=== PATIENT | male | born 2000 | race African-American/Black ===

== ENCOUNTER 2020-04-04 22:29 | Emergency (ER) | payer OTHER ==
--- NOTE | 2020-04-04 23:01 | EDM.PDOCBH ---
ED HPI GENERAL MEDICAL PROBLEM - General Chief Complaint: Behavioral/Psych Stated Complaint: ATTEMPTED SUICIDE Time Seen by Provider: 04/04/20 22:40 Source of Information: Reports: Patient, Police (3 members of the [employer]) History Limitations: Reports: No Limitations - History of Present Illness INITIAL COMMENTS - FREE TEXT/NARRATIVE: Mr. Oliva is a very pleasant 19-year-old man who is now brought to the ED by the [employer] [facility] after they witnessed him attempting to cut his left wrist. According to the police, the patient was feeling particularly depressed tonight and posted suicidal thoughts on Facebook while he was driving around the [facility] campus. The police were notified and were able to locate the patient. When he committed a traffic violation, they pulled him over, and as they approached his vehicle, they saw him actively cutting his left wrist with a knife. They pulled him out of his vehicle, put him in handcuffs for his own protection, and brought him here. The patient states that he does not have a formal diagnosis of depression or any other psychiatric illnesses, although he knows that he has been depressed for a long time. He states that he felt particularly depressed tonight, which is why he did what he did earlier, as an attempt to commit suicide. Other than his left wrist laceration, he is uninjured. The patient states that last tetanus vaccination was last year. Here in the ED, the patient is found to be hemodynamically stable, afebrile, saturating 100% on room air. Other than his depression and suicidal ideation, the patient denies having a recent fever, chills, sore throat, ear pain, nasal or sinus congestion, cough, dyspnea, chest pain, palpitations, nausea, vomiting, constipation, diarrhea, abdominal pain, urinary symptoms, recent weight gain or weight loss, recent bloody bowel movements or black bowel movements, recent joint aches, headaches, or rashes. The patient is from [place], [place]. We are notified that the patient's father is on his way here from [place]. The patient did not receive an influenza vaccine this season, but agreed to receive one here [facility]. - Related Data Allergies Allergy/AdvReac Type Severity Reaction Status Date / Time No Known Allergies Allergy Verified 04/04/20 22:36 Home Meds: Home Meds . [No Known Home Meds] 04/04/20 [History] Past Medical History HEENT History: Reports: Hard of Hearing (right ear) - Past Surgical History HEENT Surgical History: Reports: Myringotomy w Tube(s) (bilateral), Oral Surgery (dental extractions), Other (See Below) (Right middle ear prosthetics) Social & Family History - Family History Cardiac: Reports: CT Endocrine/Metabolic: Reports: Diabetes, type II - Tobacco Use Tobacco Use Status *Q: Never Tobacco User - Caffeine Use Caffeine Use: Reports: Tea - Alcohol Use Alcohol Use History: Yes Alcohol Use Frequency: Socially - Recreational Drug Use Recreational Drug Use: Yes Drug Use in Last 12 Months: Yes Recreational Drug Type: Reports: Marijuana/Hashish (last smoked 2018) - Living Situation & Occupation Living situation: Reports: Single, Other (Dorm) Occupation: Student ([employer]) ED ROS GENERAL - Review of Systems Review Of Systems: Comprehensive ROS is negative, except as noted in HPI. ED EXAM, BEHAVIORAL HEALTH - Physical Exam Exam: See Below Exam Limited By: No Limitations General Appearance: Alert, WD/WN, No Apparent Distress Eye Exam: Bilateral Eye: EOMI, Normal Inspection Ears: Normal External Exam, Hearing Loss (right ear) Nose: Normal Inspection Throat/Mouth: Normal Inspection, Normal Lips, Normal Voice, No Airway Compromise Head: Atraumatic, Normocephalic Neck: Normal Inspection, Full Range of Motion Respiratory/Chest: No Respiratory Distress, Lungs Clear, Normal Breath Sounds, No Accessory Muscle Use Cardiovascular: Normal Peripheral Pulses, Regular Rate, Rhythm, No Edema, No Gallop, No JVD, No Murmur, No Rub GI/Abdominal: Normal Bowel Sounds, Soft, Non-Tender, No Organomegaly, No Distention, No Abnormal Bruit, No Mass Back Exam: Normal Inspection, Full Range of Motion, NT Extremities: Normal Range of Motion, No Pedal Edema, Normal Capillary Refill, Other (Proximately 3 cm partial-thickness linear laceration running diagonally across the volar aspect of the patient's left wrist. Minimal bleeding. Neurovascular status of the left upper extremity is intact.) Neurological: Alert, Normal Cognition, No Motor/Sensory Deficits, Oriented x 3 Psychiatric: Depressed Mood Skin Exam: Warm, Dry, Normal color, No rash ED LACERATION PROCEDURES - Laceration/Wound Repair Left Wrist Lac/wound length in cm: 3.0 Appearance: Superficial, Linear Distal NVT: Neuro & Vascular Intact, No Tendon Injury Skin Prep: Saline Exploration/Debridement/Repair: Wound Explored, In a Bloodless Field, Explored to Base, No Foreign Material Found Closed with: Dermabond Drain Placement: No Sterile Dressing Applied: None Tetanus Status Addressed: Yes Complications: No #1 Interpretation EKG Date: 04/04/20 Time: 22:53 Rhythm: NSR Rate (Beats/Min): 73 Dexter: Normal P-Wave: Present QRS: Normal ST-T: Normal QT: Normal Comparison: NA - No Prior EKG COURSE, BEHAVIORAL HEALTH COMP - Course Vital Signs: Last Vital Signs Temp 36.6 C 04/04/20 22:39 Pulse 72 04/04/20 22:39 Resp 18 04/04/20 22:39 BP 128/82 04/04/20 22:39 Pulse Ox 100 04/04/20 22:39 Orders, Labs, Meds: Active Orders 24 hr Category Date Time Status EKG Documentation Completion [RC] STAT Care 04/04/20 22:43 Active Laboratory Tests 04/04/20 04/04/20 04/04/20 Range/Units 23:05 23:05 23:05 WBC 12.57 H (4.23-9.07) K/mm3 RBC 4.66 (4.63-6.08) M/mm3 Hgb 13.7 (13.7-17.5) gm/dl Hct 41.9 (40.1-51.0) % MCV 89.9 (79.0-92.2) fl MCH 29.4 (25.7-32.2) pg MCHC 32.7 (32.2-35.5) g/dl RDW Std Deviation 42.8 (35.1-43.9) fL Plt Count 252 (163-337) K/mm3 MPV 9.3 L (9.4-12.3) fl Neutrophils % (Manual) 77 H (40-60) % Band Neutrophils % 1 (0-10) % Lymphocytes % (Manual) 13 L (20-40) % Atypical Lymphs % 0 % Monocytes % (Manual) 8 (2-10) % Eosinophils % (Manual) 0 L (0.8-7.0) % Basophils % (Manual) 1 (0.2-1.2) Platelet Estimate Adequate Plt Morphology Comment Normal RBC Morph Comment Normal Sodium 139 (136-145) mEq/L Potassium 3.9 (3.5-5.1) mEq/L Chloride 103 (98-107) mEq/L Carbon Dioxide 29 (21-32) mEq/L Anion Gap 10.9 (5-15) BUN 17 (7-18) mg/dL Creatinine 1.2 (0.7-1.3) mg/dL Est Cr Clr Drug Dosing 104.18 mL/min Estimated GFR (MDRD) > 60 (>60) mL/min BUN/Creatinine Ratio 14.2 (14-18) Glucose 90 (74-106) mg/dL Calcium 9.0 (8.5-10.1) mg/dL Magnesium 2.1 (1.8-2.4) mg/dl Total Bilirubin 0.6 (0.2-1.0) mg/dL AST 51 H (15-37) U/L ALT 31 (16-63) U/L Alkaline Phosphatase 57 (46-116) U/L Total Protein 7.0 (6.4-8.2) g/dl Albumin 4.3 (3.4-5.0) g/dl Globulin 2.7 gm/dL Albumin/Globulin Ratio 1.6 (1-2) TSH 3rd Generation 0.872 (0.516-4.13) uIU/mL Salicylates < 0.2 L (2.8-20) mg/dL Urine Opiates Screen (UIXXAP=255) Ur Buprenorphine Scrn (CUTOFF=10) Ur Oxycodone Screen (KNC2KD=720) Urine Methadone Screen (RXK6VP=383) Ur Propoxyphene Screen (TBFOWK=757) Acetaminophen 0 L (10-30) ug/mL Ur Barbiturates Screen (FAIGKL=680) Ur Tricyclics Screen (YDSOXU=060) Ur Phencyclidine Scrn (CUTOFF=25) Ur Amphetamine Screen (HPDQNG=830) U Methamphetamines Scrn (AMZYUE=466) U Benzodiazepines Scrn (AVBLST=807) U Cocaine Metab Screen (PLUQHK=724) U Marijuana (THC) Screen (CUTOFF=50) Ethyl Alcohol 0.00 (0.00) gm% SARS-CoV-2 RNA (LAURYN) (NEGATIVE) 04/04/20 04/04/20 Range/Units 23:20 23:55 WBC (4.23-9.07) K/mm3 RBC (4.63-6.08) M/mm3 Hgb (13.7-17.5) gm/dl Hct (40.1-51.0) % MCV (79.0-92.2) fl MCH (25.7-32.2) pg MCHC (32.2-35.5) g/dl RDW Std Deviation (35.1-43.9) fL Plt Count (163-337) K/mm3 MPV (9.4-12.3) fl Neutrophils % (Manual) (40-60) % Band Neutrophils % (0-10) % Lymphocytes % (Manual) (20-40) % Atypical Lymphs % % Monocytes % (Manual) (2-10) % Eosinophils % (Manual) (0.8-7.0) % Basophils % (Manual) (0.2-1.2) Platelet Estimate Plt Morphology Comment RBC Morph Comment Sodium (136-145) mEq/L Potassium (3.5-5.1) mEq/L Chloride (98-107) mEq/L Carbon Dioxide (21-32) mEq/L Anion Gap (5-15) BUN (7-18) mg/dL Creatinine (0.7-1.3) mg/dL Est Cr Clr Drug Dosing mL/min Estimated GFR (MDRD) (>60) mL/min BUN/Creatinine Ratio (14-18) Glucose (74-106) mg/dL Calcium (8.5-10.1) mg/dL Magnesium (1.8-2.4) mg/dl Total Bilirubin (0.2-1.0) mg/dL AST (15-37) U/L ALT (16-63) U/L Alkaline Phosphatase (46-116) U/L Total Protein (6.4-8.2) g/dl Albumin (3.4-5.0) g/dl Globulin gm/dL Albumin/Globulin Ratio (1-2) TSH 3rd Generation (0.516-4.13) uIU/mL Salicylates (2.8-20) mg/dL Urine Opiates Screen Negative (RLDOGK=690) Ur Buprenorphine Scrn Negative (CUTOFF=10) Ur Oxycodone Screen Negative (INV5OJ=561) Urine Methadone Screen Negative (HCW3MO=037) Ur Propoxyphene Screen Negative (VDCQPY=254) Acetaminophen (10-30) ug/mL Ur Barbiturates Screen Negative (YSHNMQ=524) Ur Tricyclics Screen Negative (GYOXAY=024) Ur Phencyclidine Scrn Negative (CUTOFF=25) Ur Amphetamine Screen Negative (UDHKVQ=461) U Methamphetamines Scrn Negative (YSIQEO=697) U Benzodiazepines Scrn Negative (SDFFKY=744) U Cocaine Metab Screen Negative (VFQNKK=734) U Marijuana (THC) Screen Negative (CUTOFF=50) Ethyl Alcohol (0.00) gm% SARS-CoV-2 RNA (LAURYN) Negative (NEGATIVE) Medical Clearance: 04/04/20 22:54 As above, the patient was feeling especially depressed tonight, and posted his suicidal feelings on Facebook while driving around the [facility] campus. The police were notified, found the patient, pulled him over for a traffic violation, and when they approach his vehicle, found him in the process of cutting his left wrist with a knife. They pulled him out of the vehicle and brought him here. He is cooperative, although visibly depressed. The laceration to his left wrist appears to be relatively superficial and may not need sutures, although I will readdress it after it has been cleaned up. I have ordered a standard psychiatric medical clearance panel. I brought the patient a turkey sandwich meal. 04/04/20 23:41 I reexamined the patient's left wrist laceration after it was cleaned up. It is a 3 cm linear partial-thickness laceration that was appropriate for closure with Dermabond, which I applied. The patient tolerated the procedure well. 04/04/20 23:51 The patient's CBC is remarkable for WBC count mildly elevated at 12.57, but with only 1% bandemia, and the remainder of his CBC being unremarkable. His CMP is remarkable for an AST slightly elevated at 51, but with an ALT normal at 31, and the remainder of his CMP being unremarkable. His magnesium level is within normal limits at 2.1. His TSH is within normal limits at 0.872. His salicylate level is undetectably low. His acetaminophen level is 0. His EtOH level is 0.00. His urine drug screen is completely negative. 04/05/20 01:51 The patient's swab for the SARS-CoV-2 virus has returned negative. 04/05/20 02:05 Case discussed with Pamela at [facility] at 01:59. Case then discussed with Dr. Telles, Psychiatrist at [facility], at 02:02. She would like the patient to be admitted to their psychiatric facility, but he is agreeable to having the patient's father bring the patient, if the patient's father is willing to do that when he gets here. The police told me that the patient's father was on his way. The drive from [place], [place] is about 6- 1/2 [address], which would put the patient's father into [place] around 05:00 to 05:30 this morning. I will discuss that option with the patient's father when he gets here. 04/05/20 06:46 The patient's father is here, and will be driving the patient to [facility]. Departure - Departure Time of Disposition: 06:46 Disposition: DC/Tfer to Psych Hosp/Unit 65 Condition: Good Clinical Impression: Depression, Suicide gesture, Laceration of left wrist - Discharge Information *PRESCRIPTION DRUG MONITORING PROGRAM REVIEWED*: Not Applicable *COPY OF PRESCRIPTION DRUG MONITORING REPORT IN PATIENT ADAM: Not Applicable Referrals: PCP,None [Primary Care Provider] - Forms: ED Department Discharge Sepsis Event Note (ED) - Evaluation Sepsis Screening Result: No Definite Risk - Focused Exam Vital Signs: Vital Signs Temp Pulse Resp BP Pulse Ox 04/04/20 22:39 36.6 C 72 18 128/82 100 - My Orders Last 24 Hours: My Active Orders 04/04/20 22:43 EKG Documentation Completion [RC] STAT - Assessment/Plan Last 24 Hours: My Active Orders 04/04/20 22:43 EKG Documentation Completion [RC] STAT
[2020-04-04 23:40] LABS: ACETAMINOPHEN 0 ug/mL (10-30)
== END 2020-04-05 06:55 ==
LOC: JD.ED 22:29
DX: S61.512A Laceration without foreign body of left wrist, initial encounter (principal); F32.9 Major depressive disorder, single episode, unspecified; Z20.828 Contact with and (suspected) exposure to other viral communicable diseases; W26.0XXA Contact with knife, initial encounter
CPT/HCPCS: 12002; 36415; 80053; 80306; 80307; 83735; 84443; 85007; 85027; 93005; 93010; 99284; 99285-25; U0002

== ENCOUNTER 2020-05-30 16:16 | Emergency (ER) | payer OTHER ==
[2020-05-30] MEDS ORDERED: Lidocaine 1% 10 ML MDV INJECT ONE (16:24)
--- NOTE | 2020-05-30 16:33 | EDM.PDOCBH ---
ED HPI GENERAL MEDICAL PROBLEM - General Chief Complaint: Behavioral/Psych Stated Complaint: [facility] Time Seen by Provider: 05/30/20 16:20 Source of Information: Reports: Patient, RN Notes Reviewed History Limitations: Reports: No Limitations (pt seems tired or sleepy, he answers questiong appropriately) - History of Present Illness INITIAL COMMENTS - FREE TEXT/NARRATIVE: Patient is a 19-year-old male brought into the ER today by [facility] for his left wrist laceration. The ambulance was called to the patient's house for the wrist lacerations. They noted that there was quite a bit of blood at the scene, they did apply pressure and the bleeding stopped. The did start an IV, and gave him a bolus IV fluids due to the amount of blood at scene. When patient shows up to the ER, his wounds are not bleeding, there is a horizontal laceration to the volar surface of the left wrist, 2 areas that are just deep enough to require possibly 2 sutures each. There are some areas on his arm otherwise that look like slight puncture wounds, none of these are actively bleeding. Timeline of how long he was in the bathroom is unclear as he was found by friends on the floor face down. The patient states he takes Lexapro 10 mg daily which he did take today, and he did request a increase in his dosage from his psychiatrist, but this has not been fulfilled at this time. He sees a [facility]. He notes that he has had suicidal intent in the past with active attempts by cutting. He states that he did his cutting today, to "end it all". He is not forthcoming about why however. Patient is cooperative and does answer questions appropriately but either falls asleep or will talk with us much otherwise. Vitals are stable, patient's pulse is 67 bpm, temperature is 98.2 F. Respiratory rate is 14 breaths/min, blood pressure 121/63, O2 sats are 97% on room air.. Patient denies any other sick-like symptoms, fever/chills, cough/shortness of breath, nausea/vomiting/diarrhea. - Related Data Allergies Allergy/AdvReac Type Severity Reaction Status Date / Time No Known Allergies Allergy Verified 05/30/20 16:27 Home Meds: Home Meds Escitalopram Oxalate [Lexapro] 10 mg PO DAILY 05/30/20 [History] Past Medical History HEENT History: Reports: Hard of Hearing (right ear) Neurological History: Reports: Concussion Psychiatric History: Reports: Depression - Past Surgical History HEENT Surgical History: Reports: Myringotomy w Tube(s) (bilateral), Oral Surgery (dental extractions), Other (See Below) (Right middle ear prosthetics) Social & Family History - Family History Cardiac: Reports: [place] Endocrine/Metabolic: Reports: Diabetes, type II - Caffeine Use Caffeine Use: Reports: Tea - Living Situation & Occupation Living situation: Reports: Single, Other (Dorm) Occupation: Student ([employer]) ED ROS GENERAL - Review of Systems Review Of Systems: Comprehensive ROS is negative, except as noted in HPI. ED EXAM, BEHAVIORAL HEALTH - Physical Exam Exam: See Below Exam Limited By: No Limitations General Appearance: Alert, WD/WN, No Apparent Distress Eye Exam: Bilateral Eye: EOMI, Normal Inspection, PERRL Respiratory/Chest: No Respiratory Distress, Lungs Clear, Normal Breath Sounds, No Accessory Muscle Use, Chest Non-Tender Cardiovascular: Normal Peripheral Pulses, Regular Rate, Rhythm, No Edema GI/Abdominal: Normal Bowel Sounds, Soft, Non-Tender, No Distention, No Mass Extremities: Normal Range of Motion, Normal Capillary Refill Neurological: Alert (when prompted with a question) Psychiatric: Depressed Mood, Non-Communicative (but answers direct questions), Withdrawn, Suicidal Plan, Suicidal Thoughts. No: Auditory Hallucinations, Visual Hallucinations Skin Exam: Warm, Dry, Normal color, No rash, Signs of self injury (1 horizontal wound on volar left wrist surface, 4cm in length with ends having 1cm open that will need repair. Multiple other shallow puncture wounds on left forearm.) ED LACERATION PROCEDURES - Laceration/Wound Repair Left Anterior Wrist Lac/wound length in cm: 4 Appearance: Superficial, Linear Distal NVT: Neuro & Vascular Intact, No Tendon Injury Anesthetic Type: Local Local Anesthesia - Lidocaine (Xylocaine): 1% Plain Local Anesthetic Volume: 3cc Skin Prep: Chlorhexidine (Hibiciens), Saline Exploration/Debridement/Repair: Wound Explored, In a Bloodless Field, Explored to Base, No Foreign Material Found Closed with: Sutures Suture Size: 4-0 # of Sutures: 4 Suture Type: Prolene, Interrupted, Simple Sterile Dressing Applied: Nurse Tetanus Status Addressed: Yes Complications: No COURSE, BEHAVIORAL HEALTH COMP - Course Vital Signs: Last Vital Signs Temp 98.2 F 05/30/20 16:21 Pulse 67 05/30/20 16:21 Resp 14 05/30/20 16:21 BP 121/63 05/30/20 16:21 Pulse Ox 97 05/30/20 16:21 Orders, Labs, Meds: Active Orders 24 hr Category Date Time Status CRP [C-REACTIVE PROTEIN] [CHEM] Stat Lab 05/30/20 17:44 Ordered Laboratory Tests 05/30/20 05/30/20 05/30/20 Range/Units 16:36 16:42 16:45 WBC 7.20 (4.23-9.07) K/mm3 RBC 4.40 L (4.63-6.08) M/mm3 Hgb 12.7 L (13.7-17.5) gm/dl Hct 39.3 L (40.1-51.0) % MCV 89.3 (79.0-92.2) fl MCH 28.9 (25.7-32.2) pg MCHC 32.3 (32.2-35.5) g/dl RDW Std Deviation 41.1 (35.1-43.9) fL Plt Count 204 (163-337) K/mm3 MPV 9.4 (9.4-12.3) fl Neutrophils % (Manual) 70 H (40-60) % Band Neutrophils % 1 (0-10) % Lymphocytes % (Manual) 19 L (20-40) % Atypical Lymphs % 0 % Monocytes % (Manual) 8 (2-10) % Eosinophils % (Manual) 0 L (0.8-7.0) % Basophils % (Manual) 2 H (0.2-1.2) Platelet Estimate Adequate Plt Morphology Comment Normal RBC Morph Comment Normal Sodium (136-145) mEq/L Potassium (3.5-5.1) mEq/L Chloride (98-107) mEq/L Carbon Dioxide (21-32) mEq/L Anion Gap (5-15) BUN (7-18) mg/dL Creatinine (0.7-1.3) mg/dL Est Cr Clr Drug Dosing mL/min Estimated GFR (MDRD) (>60) mL/min BUN/Creatinine Ratio (14-18) Glucose (74-106) mg/dL Calcium (8.5-10.1) mg/dL Total Bilirubin (0.2-1.0) mg/dL AST (15-37) U/L ALT (16-63) U/L Alkaline Phosphatase (46-116) U/L Total Protein (6.4-8.2) g/dl Albumin (3.4-5.0) g/dl Globulin gm/dL Albumin/Globulin Ratio (1-2) TSH 3rd Generation (0.516-4.13) uIU/mL Salicylates (2.8-20) mg/dL Urine Opiates Screen Negative (HOYZIH=133) Ur Buprenorphine Scrn Negative (CUTOFF=10) Ur Oxycodone Screen Negative (DYQ1PP=667) Urine Methadone Screen Negative (CBT7LY=389) Ur Propoxyphene Screen Negative (AXILMM=691) Acetaminophen (10-30) ug/mL Ur Barbiturates Screen Negative (FGFWII=697) Ur Tricyclics Screen Negative (DWWEUG=323) Ur Phencyclidine Scrn Negative (CUTOFF=25) Ur Amphetamine Screen Negative (SVFJOR=465) U Methamphetamines Scrn Negative (SHCYNA=705) U Benzodiazepines Scrn Negative (CACFJA=377) U Cocaine Metab Screen Negative (ONVZBB=836) U Marijuana (THC) Screen Negative (CUTOFF=50) Ethyl Alcohol (0.00) gm% Influenza Type A RNA Negative (NEGATIVE) Influenza Type B RNA Negative (NEGATIVE) SARS-CoV-2 RNA (LAURYN) Positive H (NEGATIVE) 05/30/20 05/30/20 Range/Units 16:45 16:45 WBC (4.23-9.07) K/mm3 RBC (4.63-6.08) M/mm3 Hgb (13.7-17.5) gm/dl Hct (40.1-51.0) % MCV (79.0-92.2) fl MCH (25.7-32.2) pg MCHC (32.2-35.5) g/dl RDW Std Deviation (35.1-43.9) fL Plt Count (163-337) K/mm3 MPV (9.4-12.3) fl Neutrophils % (Manual) (40-60) % Band Neutrophils % (0-10) % Lymphocytes % (Manual) (20-40) % Atypical Lymphs % % Monocytes % (Manual) (2-10) % Eosinophils % (Manual) (0.8-7.0) % Basophils % (Manual) (0.2-1.2) Platelet Estimate Plt Morphology Comment RBC Morph Comment Sodium 138 (136-145) mEq/L Potassium 4.2 (3.5-5.1) mEq/L Chloride 108 H (98-107) mEq/L Carbon Dioxide 25 (21-32) mEq/L Anion Gap 9.2 (5-15) BUN 19 H (7-18) mg/dL Creatinine 1.4 H (0.7-1.3) mg/dL Est Cr Clr Drug Dosing 91.47 mL/min Estimated GFR (MDRD) > 60 (>60) mL/min BUN/Creatinine Ratio 13.6 L (14-18) Glucose 83 (74-106) mg/dL Calcium 8.3 L (8.5-10.1) mg/dL Total Bilirubin 0.8 (0.2-1.0) mg/dL AST 32 (15-37) U/L ALT 23 (16-63) U/L Alkaline Phosphatase 47 (46-116) U/L Total Protein 6.2 L (6.4-8.2) g/dl Albumin 3.8 (3.4-5.0) g/dl Globulin 2.4 gm/dL Albumin/Globulin Ratio 1.6 (1-2) TSH 3rd Generation 0.348 L (0.516-4.13) uIU/mL Salicylates < 0.2 L (2.8-20) mg/dL Urine Opiates Screen (LBNPCX=913) Ur Buprenorphine Scrn (CUTOFF=10) Ur Oxycodone Screen (CEP3HQ=111) Urine Methadone Screen (NZH5HE=659) Ur Propoxyphene Screen (JBAPLS=717) Acetaminophen 0 L (10-30) ug/mL Ur Barbiturates Screen (PYHSSP=450) Ur Tricyclics Screen (KVXMGS=841) Ur Phencyclidine Scrn (CUTOFF=25) Ur Amphetamine Screen (CZBQYD=428) U Methamphetamines Scrn (XKXVPP=419) U Benzodiazepines Scrn (PZAKIS=203) U Cocaine Metab Screen (LXOWTN=017) U Marijuana (THC) Screen (CUTOFF=50) Ethyl Alcohol 0.00 (0.00) gm% Influenza Type A RNA (NEGATIVE) Influenza Type B RNA (NEGATIVE) SARS-CoV-2 RNA (LAURYN) (NEGATIVE) Medications Discontinued Medications Generic Name Dose Route Start Last Admin Trade Name Hilda PRN Reason Stop Dose Admin Lidocaine HCl 10 ml 05/30/20 16:24 05/30/20 17:30 Xylocaine 1% INJECT 05/30/20 16:25 10 ml ONETIME ONE Administration Discharge vs Psych Eval/Treatment:: 05/30/20 16:40 Patient is a 19-year-old male who presents to the ED today for his wrist lacerations. Initially was unclear if this was a suicidal attempt, but the patient does not verbalize suicidal intent. There are 2 small areas on his wrist that will require a few sutures. We will get labs, COVID-19 swab and try to find placement for him. 05/30/20 17:46 The patient's labs have returned, CBC is within normal limits, metabolic panel essentially okay. Patient's TSH is mildly low at 0.3, this is a change from March when he was admitted to [facility] for suicidal attempt. Patient's Covid screen did come back positive. We did in choir with the patient and he notes that he was positive in December, review of his visit in March shows that he was negative then. Were not sure if this is a reinfection or new infection however he is in isolation at this time. Appropriate PPE was donned while interviewing the patient and for laceration repair. I did talk with [facility], and Dr. Telles does accept for transfer as he has been there in the past. Departure - Departure Time of Disposition: 17:48 Disposition: DC/Tfer to Psych Hosp/Unit 65 Condition: Fair Clinical Impression: Suicide gesture Qualifiers: Encounter type: initial encounter Qualified Code(s): X83.8XXA - Intentional self-harm by other specified means, initial encounter Laceration of left wrist Qualifiers: Encounter type: initial encounter Qualified Code(s): S61.512A - Laceration without foreign body of left wrist, initial encounter - Discharge Information Referrals: PCP,Unknown [Ordering Only Provider] - Forms: ED Department Discharge Sepsis Event Note (ED) - Evaluation Sepsis Screening Result: No Definite Risk - Focused Exam Vital Signs: Vital Signs Temp Pulse Resp BP Pulse Ox 05/30/20 16:21 98.2 F 67 14 121/63 97 - My Orders Last 24 Hours: My Active Orders 05/30/20 17:44 CRP [C-REACTIVE PROTEIN] [CHEM] Stat - Assessment/Plan Last 24 Hours: My Active Orders 05/30/20 17:44 CRP [C-REACTIVE PROTEIN] [CHEM] Stat
[2020-05-30 17:26] LABS: ACETAMINOPHEN 0 ug/mL (10-30)
[2020-05-30 17:29] LABS: CORONAVIRUS COVID-19 NAA POSITIVE (NEGATIVE)
== END 2020-05-30 19:30 ==
LOC: JD.ED 16:16
DX: T14.91XA Suicide attempt, initial encounter (principal); S61.512A Laceration without foreign body of left wrist, initial encounter; X78.9XXA Intentional self-harm by unspecified sharp object, initial encounter
CPT/HCPCS: 0240U; 12002; 36415; 80053; 80143; 80179; 80306; 80307; 84443; 85007; 85027; 86140; 99284; 99285-25; J2001